=== PATIENT | female | born 1970 ===

== ENCOUNTER 2024-08-27 05:51 | Day surgery (SDC) | payer OTHER ==
[2024-08-23 12:03] VITALS: BP 139/82
[~2024-08-27] VITALS: Ht 157.5 cm; Wt 70.8 kg
[~2024-08-27 05:51] MED LIST: ENDOMETRIN100 MG VAG; NORVASC2.5 M1 PO; ZESTRIL40 M1 PO
[2024-08-27] MEDS ORDERED: DEXAMETHASONE SODIUM PHOSPHATE 4 MG/ML VIAL ONE (07:37)
[2024-08-27] MEDS ORDERED: CEFAZOLIN SODIUM 1,000 MG VIAL ONE (07:39)
== END 2024-08-27 12:00 | disposition home or self-care (01) ==
LOC: CIR.AMB 05:51 → O/R 05:51 → SURH 05:51 → EDSTATUS 10:45 → SURH 10:45 → CIR.AMB 12:00 → O/R 12:00 → SURH 15:45
PROVIDERS: ATTEND Surgery
DX: D21.0 Benign neoplasm of connective and other soft tissue of head, face and neck (principal)